=== PATIENT | female | born 1980 | race African-American/Black ===

== ENCOUNTER → 2021-10-01 | Emergency (ER) | payer SELFPAY ==
[~2021-10-01] MED LIST: CEPHALEXIN500 M1 PO; IBU400 MG PO
[2021-10-01 10:04] VITALS: TEMP 98.1
[2021-10-01 11:03] LABS: COLLECTION METHOD CLEAN CATCH
[2021-10-01 11:13] LABS: MUCOUS Present (NOT PRESENT); PH 5 (5-8); SQUAMOUS EPITHELIAL 0-2 /hpf (0-10); URINE APPEARANCE Hazy (CLEAR/HAZY); URINE BACTERIA Rare /hpf (NONE SEEN); URINE BLOOD 1+ (NEGATIVE); URINE COLOR Yellow (YELLOW); URINE GLUCOSE Negative (NEGATIVE); URINE KETONE Negative (NEGATIVE); URINE NITRATE Negative (NEGATIVE); URINE PROTEIN(semi-quant) Negative (NEGATIVE); URINE UROBILINOGEN Negative (NEGATIVE)
[2021-10-01 11:55] VITALS: BP 153/83; PULSE 88
== END ==
LOC: COL.ER 08:57
PROVIDERS: Emergency Medicine
DX: N39.0 Urinary tract infection, site not specified (principal); F17.210 Nicotine dependence, cigarettes, uncomplicated; Z32.02 Encounter for pregnancy test, result negative; Z28.310 Unvaccinated for COVID-19